=== PATIENT | male | born 1970 | race Caucasian/White ===

== ENCOUNTER → 2016-06-19 | Outpatient (CLI) | payer BC ==
[2016-06-19 13:26] LABS: HEMOGLOBIN 14.6 gm/dl (14.0-17.5); RED BLOOD COUNT 5.04 M/UL (4.20-5.50)
[2016-06-19 13:49] LABS: BUN/CREATININE RATIO 12 (0-10)
== END ==
LOC: LAB 12:47
PROVIDERS: Nurse Practitioner Family
DX: Z00.00 Encounter for general adult medical examination without abnormal findings (principal); E03.9 Hypothyroidism, unspecified; M25.40 Effusion, unspecified joint; M32.9 Systemic lupus erythematosus, unspecified; R10.13 Epigastric pain; R13.10 Dysphagia, unspecified; M10.9 Gout, unspecified; R53.83 Other fatigue; R80.9 Proteinuria, unspecified; I10 Essential (primary) hypertension; E53.8 Deficiency of other specified B group vitamins
CPT/HCPCS: 80053; 80061; 82043; 82570; 82607; 84439; 84443; 84550; 85025

== ENCOUNTER → 2020-03-29 | Outpatient (CLI) | payer OTHER ==
[~2020-03-29] MED LIST: NORCO 5-325 TA1 EACH PO
[2020-03-29 12:27] LABS: HEMOGLOBIN 15.7 gm/dl (14.0-17.5); RED BLOOD COUNT 5.24 M/UL (4.20-5.50); WHITE BLOOD COUNT 4.9 K/UL (4.5-11.0)
[2020-03-29 12:45] LABS: BUN/CREATININE RATIO 9 (0-10)
== END ==
LOC: LAB 11:50
PROVIDERS: Nurse Practitioner Family
DX: E11.9 Type 2 diabetes mellitus without complications (principal); E03.9 Hypothyroidism, unspecified
CPT/HCPCS: 80053; 80061; 82043; 83036; 84436; 84443; 84550; 85025

== ENCOUNTER → 2020-07-15 | Outpatient (CLI) | payer OTHER ==
[2020-07-15 08:35] LABS: HEMOGLOBIN 15.4 gm/dl (14.0-17.5); RED BLOOD COUNT 5.21 M/UL (4.20-5.50); WHITE BLOOD COUNT 5.8 K/UL (4.5-11.0)
[2020-07-15 09:03] LABS: BUN/CREATININE RATIO 15 (0-10)
[2020-07-16 08:14] LABS: CHOLESTEROL, TOTAL 146 mg/dL (100-199); ESTRADIOL 24.5 pg/mL (7.6-42.6); FSH, SERUM 3.4 mIU/mL (1.5-12.4); HDL CHOLESTEROL 40 mg/dL (>39); PROLACTIN 8.4 ng/mL (4.0-15.2); T. CHOL/HDL RATIO 3.7 ratio (0.0-5.0); TRIGLYCERIDES 64 mg/dL (0-149); VITAMIN D, 25-HYDROXY 35.6 ng/mL (30.0-100.0)
[2020-07-16 11:15] LABS: CREATININE, URINE 95.1 mg/dL (Not Estab.)
[2020-07-19 07:11] LABS: TESTOSTERONE, SERUM 164 ng/dL (264-916)
== END ==
LOC: LAB 06:57
PROVIDERS: Nurse Practitioner Family
DX: Z00.00 Encounter for general adult medical examination without abnormal findings (principal); E11.9 Type 2 diabetes mellitus without complications; M10.9 Gout, unspecified; I10 Essential (primary) hypertension; E78.5 Hyperlipidemia, unspecified; E29.1 Testicular hypofunction; R53.83 Other fatigue; E53.8 Deficiency of other specified B group vitamins; E55.9 Vitamin D deficiency, unspecified
CPT/HCPCS: 80053; 80061; 82043; 82570; 82607; 82670; 83001; 83002; 83036; 84146; 84402; 84403; 84439; 84443; 84550; 85025

== ENCOUNTER → 2021-10-30 | Outpatient (CLI) | payer OTHER ==
[2021-10-30 12:07] LABS: HEMOGLOBIN 14.5 gm/dl (14.0-17.5); RED BLOOD COUNT 5.12 M/UL (4.20-5.50); WHITE BLOOD COUNT 6.6 K/UL (4.5-11.0)
[2021-10-30 12:38] LABS: BUN/CREATININE RATIO 15 (0-10)
[2021-10-31 06:11] LABS: VITAMIN D, 25-HYDROXY 35.2 ng/mL (30.0-100.0)
[2021-11-03 03:11] LABS: PROSTATE SPECIFIC AG, SERUM 0.5 ng/mL (0.0-4.0)
[2021-11-03 08:14] LABS: HEMOGLOBIN A1C 5.8 % (4.8-5.6)
[2021-11-03 09:14] LABS: CHOLESTEROL, TOTAL 147 mg/dL (100-199); HDL CHOLESTEROL 35 mg/dL (>39); LDL CHOLESTEROL CALC 98 mg/dL (0-99); LDL/HDL RATIO 2.8 ratio (0.0-3.6); T. CHOL/HDL RATIO 4.2 ratio (0.0-5.0); TRIGLYCERIDES 70 mg/dL (0-149)
== END ==
LOC: LAB 11:36
PROVIDERS: Nurse Practitioner Family
DX: Z00.00 Encounter for general adult medical examination without abnormal findings (principal); R73.9 Hyperglycemia, unspecified; I10 Essential (primary) hypertension; E78.5 Hyperlipidemia, unspecified; E55.9 Vitamin D deficiency, unspecified; N40.1 Benign prostatic hyperplasia with lower urinary tract symptoms
CPT/HCPCS: 36415; 80053; 80061; 82043; 82570; 82607; 83036; 84153; 84154; 84439; 84443; 85025